=== PATIENT | female | born 1970 | race Hispanic/Latino ===

== ENCOUNTER 2024-02-20 23:46 | Emergency (ER) | payer BC ==
[~2024-02-20] VITALS: Ht 162.6 cm; Wt 77.1 kg
[2024-02-21 01:10] LABS: BASOPHILS # (AUTO) 0.05 K/uL (0.00-0.20); BASOPHILS % (AUTO) 0.6 % (0.0-5.0); EOSINOPHILS # (AUTO) 0.18 K/uL (0.00-0.70); EOSINOPHILS % (AUTO) 2.3 % (0.0-8.0); HEMATOCRIT 38.4 % (36-48); IMMATURE GRANULOCYTE ABSOLUTE 0.02 K/uL (0-1); LYMPHOCYTES # (AUTO) 3.1 K/uL (1.0-4.8); LYMPHOCYTES % (AUTO) 39.2 % (21.0-51.0); MEAN CORPUSCULAR HEMOGLOBIN 30.2 pg (27.0-33.0); MEAN CORPUSCULAR HGB CONC 33.9 g/dL (32.0-36.0); MEAN CORPUSCULAR VOLUME 89.3 fL (79-99); MONOCYTES # (AUTO) 0.6 K/uL (0.1-1.0); MONOCYTES % (AUTO) 7.8 % (3.0-13.0); NEUTROPHILS # (AUTO) 3.9 K/uL (1.8-7.7); NEUTROPHILS % (AUTO) 49.8 % (40.0-77.0); PLATELET COUNT (AUTO) 263 K/uL (130-400); RED CELL DISTRIBUTION WIDTH 13.2 % (11.0-15.5); WHITE BLOOD COUNT (AUTO) 7.8 K/uL (4.8-10.8)
[2024-02-21 01:23] LABS: CREATININE 0.7 mg/dL (0.5-1.0); POTASSIUM 3.6 mmol/L (3.5-5.1)
[2024-02-21 01:26] LABS: SARS-CoV-2, RNA, NAAT NEGATIVE SARS CoV-2 (NEGATIVE)
[2024-02-21 01:30] LABS: INFLUENZA TYPE A Negative For Type A (NEGATIVE); INFLUENZA TYPE B Negative For Type B (NEGATIVE)
[2024-02-21 01:39] LABS: APPEARANCE,URINE CLEAR (CLEAR); BILIRUBIN,URINE NEGATIVE (NEGATIVE); COLOR,URINE LIGHT-YELLOW (YELLOW); GLUCOSE, URINE (UA) NEGATIVE (NEGATIVE); KETONES,URINE NEGATIVE (NEGATIVE); LEUKOCYTE ESTERASE ,URINE 75 Leu/uL (NEGATIVE); NITRATE,URINE NEGATIVE (NEGATIVE); OCCULT BLOOD,URINE SMALL (NEGATIVE); PH,URINE 5.5 (5.0-8.0); PROTEIN,URINE 10 mg/dL (NEGATIVE); UROBILINOGEN,URINE 0.2 mg/dL (0.2-1.0)
[2024-02-21 01:40] LABS: ADD UA MICROSCOPIC YES
[2024-02-21 01:42] LABS: BACTERIA,URINE FEW /HPF (None Seen); MUCUS,URINE RARE LPF (None Seen); RBC,URINE 0-1 /HPF (0-1); SQUAMOUS EPITHELIAL CELL,UR RARE /HPF (0-2)
[2024-02-21 01:44] LABS: HCG,QUALITATIVE URINE NEGATIVE (NEGATIVE)
[2024-02-21] MEDS ORDERED: PRED50TA2 PO (01:55)
[2024-02-21] MEDS ORDERED: VALA100031 PO (01:55)
[2024-02-21] MEDS: SOLU-MEDROL 125MG VIAL IVP ONE (02:27)
[2024-02-21 02:30] VITALS: BP 112/60; PULSE 65; RESP 18; O2SAT 98
== END 2024-02-21 02:36 | disposition home or self-care (01) ==
LOC: EDH 23:46
DX: G51.0 Bell's palsy (principal); E78.00 Pure hypercholesterolemia, unspecified; Z20.822 Contact with and (suspected) exposure to COVID-19
CPT/HCPCS: 99284; 87635; 80048; 85025; 87086; 87420; 87804 ×2; 81001; 81025; 36415; 96374; J2919

== ENCOUNTER 2024-04-04 02:23 | Emergency (ER) | payer BC ==
[~2024-04-04] VITALS: Ht 162.6 cm; Wt 77.1 kg
[~2024-04-04 02:23] MED LIST: PRED50TA2 PO; VALA100031 PO
[2024-04-04] MEDS: TRIAMCINOLONE ACETONIDE 40 MG/ML 1ML VIAL IM ONE (03:28)
[2024-04-04] MEDS: ORPHENADRINE 60MG/2ML IVP ONE (03:29)
[2024-04-04] MEDS: ketOROlac 30MG VIAL (30MG/ML) IM ONE (03:29)
[2024-04-04] MEDS: CAPSAICIN CREAM 56.6GM TP PRN (05:11)
[2024-04-04] MEDS: PHARMACY COMMUNICATION MISC SCH (05:37)
[2024-04-04 06:11] VITALS: BP 123/79; PULSE 68; RESP 16; TEMP 98.2; O2SAT 98
[2024-04-04] MEDS ORDERED: CYCL5TAB PO (06:13)
== END 2024-04-04 06:55 | disposition home or self-care (01) ==
LOC: EDH 02:23
DX: I10 Essential (primary) hypertension (principal); E66.9 Obesity, unspecified; Z79.899 Other long term (current) drug therapy; Z90.710 Acquired absence of both cervix and uterus; Z98.890 Other specified postprocedural states; M75.01 Adhesive capsulitis of right shoulder
CPT/HCPCS: 73030; 96372; 96374; J1885; J3301; J2360